=== PATIENT | female | born 2000 | race Caucasian/White ===

== ENCOUNTER 2023-06-08 20:50 | Emergency (ER) | payer OTHER, BC, SELFPAY ==
--- NOTE | ~2023-06-08 | CT_ITS ---
Non-contrast CT scan of the Abdomen and Pelvis Clinical indication: Right flank pain Technique: 2.5 mm axial scans were obtained through the abdomen and pelvis without intravenous or or al contrast. Dose reduction technique was used on this scan by utilizing automated exposure control a nd iterative reconstruction technique. The dose-length product (DLP) was 189.60 mGy-cm. Findings: Images through the lung bases reveal no abnormalities. There is no evidence of renal or ureteral calculi. The kidneys and the ureters are nondilated. The liver, spleen, pancreas, gallbladder, and adrenals appear normal. There is no aortic aneurysm. There is no evidence of bowel obstruction. Images through the pelvis were performed. There is no evidence of ascites or lymphadenopathy. Urinary bladder unremarkable. No pelvic mass seen. Impression: No significant abnormality seen. Reviewed, dictated and finalized at [facility]. [employer] TECHNICIAN Impression: No significant abnormality seen.
[2023-06-08 21:09] VITALS: BP 118/78; PULSE 86; RESP 19; TEMP 36.6; O2SAT 100
--- NOTE | 2023-06-09 00:51 | ED.GENADULT ---
HPI - General Adult General Chief complaint: Back Pain/Injury Stated complaint: lower back pain Time Seen by Provider: 06/09/23 00:36 Source: patient Mode of arrival: ambulatory Limitations: no limitations History of Present Illness HPI narrative: This is a 23-year-old female who presents to the ED with chief complaint of lower back pain beginning about 3 hours prior to arrival and worse on the right side. States the pain wraps around to the right a little bit but denies any further radiation of pain. Denies any urinary problems. Reports she has had UTIs in the past and this does not feel similar. She took Tylenol prior to arrival with no relief. Denies injury or trauma. Denies fevers, chills, nausea, vomiting, abdominal pain or pelvic complaints. Related Data Allergies Allergy/AdvReac Type Severity Reaction Status Date / Time No Known Allergies Allergy Verified 06/08/23 21:11 Review of Systems Review of Systems: All systems as dictated in HPI Exam Narrative: GENERAL: Well-appearing, well-nourished, and in no acute distress. HEAD: Normocephalic, atraumatic. EYES: PERRLA and EOMI. ENT: Nares clear, no rhinorrhea or epistaxis. Mucous membranes moist. Oropharynx without tonsillar hypertrophy exudate or other lesions. NECK: Supple. No adenopathy or masses. CHEST: No respiratory distress. Clear to auscultation. No wheezes rales or rhonchi HEART: Regular rate and rhythm. No murmur heard. Normal peripheral pulses. ABDOMEN: Mild right flank tenderness. soft, nontender, nondistended, normal active bowel sounds. MSK: Normal range of motion. No edema. SKIN: Warm, dry, no rash. NEURO: Alert and oriented x3. No focal deficits. PSYCH: Normal mood and affect. Course Vital Signs Vital signs: Vital Signs Temperature 97.8 F 06/08/23 21:09 Pulse Rate 86 06/08/23 21:09 Respiratory Rate 19 06/08/23 21:09 Blood Pressure 118/78 06/08/23 21:09 Pulse Oximetry 100 06/08/23 21:09 Oxygen Delivery Room Air 06/08/23 21:09 Temperature 97.8 F 06/08/23 21:09 Pulse Rate 66 06/09/23 01:13 Respiratory Rate 16 06/09/23 01:13 Blood Pressure 120/76 06/09/23 01:13 Pulse Oximetry 100 06/09/23 01:13 Oxygen Delivery Room Air 06/08/23 21:09 Medical Decision Making MDM Narrative Medical decision making narrative: This is a 23-year-old female who presents to the ED with chief complaint of lower back pain. Vitals are normal. Exam shows some CVA tenderness on the right. Urinalysis shows 1+ blood but she is currently on menstrual cycle. No other abnormality on UA. Lab work is normal. CT abdomen and pelvis shows no acute abnormalities. Symptoms are consistent with musculoskeletal pain. Feels improved with Toradol Pt will be discharged in stable condition. Return precautions given and supportive measures discussed. Pt is understanding and agreeable with plan for discharge and follow-up with PCP. Vital Signs Vital Signs: Vital Signs Temperature 97.8 F 06/08/23 21:09 Pulse Rate 86 06/08/23 21:09 Respiratory Rate 19 06/08/23 21:09 Blood Pressure 118/78 06/08/23 21:09 Pulse Oximetry 100 06/08/23 21:09 Oxygen Delivery Room Air 06/08/23 21:09 Temperature 97.8 F 06/08/23 21:09 Pulse Rate 66 06/09/23 01:13 Respiratory Rate 16 06/09/23 01:13 Blood Pressure 120/76 06/09/23 01:13 Pulse Oximetry 100 06/09/23 01:13 Oxygen Delivery Room Air 06/08/23 21:09 Lab Data 06/09/23 01:16 06/09/23 01:16 Labs: Lab Results 06/09/23 Range/Units 01:16 WBC 4.1 L (4.5-10.0) K/mm3 RBC 4.23 (4.2-5.4) M/mm3 Hgb 13.3 (12.0-15.0) g/dL Hct 40.9 (37.0-47.0) % MCV 96.7 (80-100) fl MCH 31.4 (26-34) pg MCHC 32.5 (32-36) g/dl RDW 11.9 (11.5-14.5) % Plt Count 168 (150-375) k/mm3 MPV 9.4 (7.4-10.4) fl Immature Gran % (Auto) 0.2 (0-0.5) % Neut % (Auto) 61.9 (45.5-73.1) % Lymph % (Auto) 23.3 (18
[2023-06-09 01:13] VITALS: BP 120/76; PULSE 66; RESP 16; O2SAT 100
[2023-06-09] MEDS: KETOROLAC 30 MG/ML VIAL (*BKC) IV PUSH (01:14)
[2023-06-09 01:25] LABS: Basophils Percent Auto 0.5 % (0.2-1.2); Eosinophils Absolute Auto 0.1 K/mm3 (0-0.3); Eosinophils Percent Auto 3.2 % (0-4.4); Hematocrit 40.9 % (37.0-47.0); Hemoglobin 13.3 g/dL (12.0-15.0); Immature Granulocyte Absolute 0.01 K/mm3 (0.00-0.031); Immature Granulocyte Percent A 0.2 % (0-0.5); Lymphocytes Absolute Auto 0.96 K/mm3 (0.9-3.2); Lymphocytes Percent Auto 23.3 % (18.3-44.2); Mean Corpuscular HGB Conc 32.5 g/dl (32-36); Mean Corpuscular Hemoglobin 31.4 pg (26-34); Mean Corpuscular Volume 96.7 fl (80-100); Mean Platelet Volume 9.4 fl (7.4-10.4); Monocytes Absolute Auto 0.5 K/mm3 (0.1-0.6); Monocytes Percent Auto 10.9 % (2.6-8.5); Neutrophils Absolute Auto 2.6 K/mm3 (1.3-6.7); Neutrophils Percent Auto 61.9 % (45.5-73.1); Platelet Count Result 168 k/mm3 (150-375); Red Blood Count 4.23 M/mm3 (4.2-5.4); Red Cell Distribution Width 11.9 % (11.5-14.5); White Blood Count 4.1 K/mm3 (4.5-10.0)
[2023-06-09 01:32] LABS: Appearance Urine Clear (Clear); Bacteria Urine None Seen /hpf; Bilirubin Urine Negative (Negative); Blood Urine 1+ (Negative); Color Urine Yellow (Yellow); Glucose Urine UA Negative (Negative); Ketones Urine Negative (Negative); Leukocyte Esterase Ur Negative LEU/UL (Negative); Nitrate Urine Negative (Negative); Non Pathogenic Casts 0-2; Protein Urine Negative (Negative); RBC Urine 0-2 /hpf (0-2); Specific Grav Ur 1.011 (1.001-1.035); Squamous Epithelial Cell Urine None seen /hpf (Few); Urobilinogen Urine 0.2 mg/dL (<2.0); WBC Urine 0-5 /hpf; pH Urine 6.5 (5.0-9.0)
[2023-06-09 01:39] LABS: Add Urine Microscopic? YES
[2023-06-09 01:46] LABS: Alanine Aminotransferase 15 U/L (6-35); Albumin Level 4.3 g/dL (3.5-5.1); Alkaline Phosphatase 67 U/L (38-126); Anion Gap 6 mmol/L (8-16); Aspartate Amino Transferase 35 U/L (14-36); Bilirubin,Total 0.7 mg/dL (0.2-1.3); Blood Urea Nitrogen 12 mg/dL (7-17); Calcium 8.8 mg/dL (8.4-10.2); Carbon Dioxide 29 mmol/L (22-30); Chloride 102 mmol/L (98-107); Estimated CRCL calculation 103 ml/min; Estimated Glomerular Filt Rate > 60; Glucose 87 mg/dL (65-110); Potassium 4.1 mmol/L (3.4-5.0); Sodium 137 mmol/L (137-145)
== END 2023-06-09 03:29 | disposition home or self-care (01) ==
PROVIDERS: Emergency Provider Physician Assistant; PCP Family Medicine
DX: M54.50 Low back pain, unspecified (principal)
CPT/HCPCS: 36415; 74176; 80053; 81001; 81025; 85025; 96374; 99284; J1885